=== PATIENT | male | born 1950 | race Two or more races ===

== ENCOUNTER 2024-09-26 07:57 | Emergency (ER) | payer OTHER, SELFPAY ==
[2024-09-26 07:58] VITALS: BMI 30.4
[2024-09-26 08:09] VITALS: BP 172/96; PULSE 73; RESP 20; TEMP 36.8; O2SAT 96; BMI 30.7
--- NOTE | 2024-09-26 08:18 | XR_ITS ---
Examination: CT abdomen and pelvis without contrast. Coronal 3-D reconstructions. Sagittal 2-D reconstructions. Date and time of exam:September 26, 2024 0830 hrs. Indications: Painful urination and constipation beginning 2 days ago CTDI: vol (mGy): 8.43 DLP: (mGycm): 508 Technique: Axial images of the abdomen have been obtained, 3 mm slice thickness Intravenous contrast material has not been administered. Low dose protocols were performed. One or more of the following dose reduction techniques were used; automated exposure control, adjustment of the mA and/or KV according to patient size, use of iterative reconstruction technique. Findings: Multiple low-density liver lesions, consider cystitis versus hemangiomas, the largest left lobe liver 3.1 cm No gallstones Spleen not enlarged No pancreatic or adrenal mass Prominent perinephric stranding Mild to moderate bilateral hydronephrosis hydroureters with pronounced pericystic inflammatory change, the appearance most consistent with bilateral vesicoureteral reflux, urinary tract infections and severe cystitis No obstructing ureteral calculi Aorta normal size No bowel obstruction Normal appendix No obstruction or diverticulitis Significant prostatomegaly AP dimension 5.8 cm Moderate lumbar spondylosis Moderate narrowing hip joints Mild left hydrocele, small bilateral fat-containing inguinal hernias Impression: Recommend hepatic sonography to confirm hepatic cysts versus hemangiomas Mild to moderate bilateral hydronephrosis hydroureters, perinephric stranding, pronounced pericystic inflammatory change, the appearance most consistent with bilateral vesicoureteral reflux urinary tract infections and severe cystitis Normal appendix Significant prostatomegaly
--- NOTE | 2024-09-26 08:19 | PD.EDRME ---
Rapid Medical Screening Exam RME Arrival date/time: 09/26/24 07:57 74-year-old male presents the emergency department complains of difficulty urinating and having stools ongoing for the last 2 days Chief Complaint: Urogenital-Male Time Seen by Provider: 09/26/24 08:01 Vital signs: Vital Signs Temperature 98.2 F 09/26/24 08:09 Pulse Rate 73 09/26/24 08:09 Respiratory Rate 20 09/26/24 08:09 Blood Pressure 172/96 H 09/26/24 08:09 Pulse Oximetry (%) 96 09/26/24 08:09 Oxygen Delivery Method Room Air 09/26/24 08:09
[2024-09-26 09:08] LABS: Basophils % (Auto) 0 % (0-2.5); Eosinophils # (Auto) 0.1 Thou/mm3 (0.0-0.5); Eosinophils % (Auto) 1 % (0-10); Hematocrit 46.2 % (41.0-53.0); Hemoglobin 16.2 g/dL (13.5-16.0); Immature Granulocytes % (Auto) 0 % (0-0); Immature Granulocytes Auto 0.03 Thou/mm3 (0.00-0.00); Lymphocytes # (Auto) 1.3 Thou/mm3 (1.0-4.8); Lymphocytes % (Auto) 14 % (10-50); Mean Corpuscular HGB Conc 35.1 g/dl (31.0-37.0); Mean Corpuscular Hemoglobin 30.7 pg (25.0-35.0); Mean Corpuscular Volume 88 fL (80-100); Monocytes # (Auto) 0.9 Thou/mm3 (0.0-0.8); Monocytes % (Auto) 9 % (0-12); Neutrophils # (Auto) 7.1 Thou/mm3 (1.8-7.7); Neutrophils % (Auto) 76 % (37-80); Nucleated Red Blood Cell % 0 /100 WBC (0); Platelet Count 285 Thou/mm3 (140-440); RDW Standard Deviation 43.8 fL (35.1-43.9); Red Blood Count 5.27 Miln/mm3 (4.50-5.90); White Blood Count 9.4 Thou/mm3 (3.8-10.6)
[2024-09-26 09:20] LABS: Alanine Aminotransferase 15 U/L (10-49); Albumin, Serum 4.8 gm/dL (3.4-4.8); Albumin/Globulin Ratio 1.9 (1.2-2.2); Alkaline Phosphatase 90 U/L (46-116); Anion Gap 8 (7-16); BUN/Creatinine Ratio 14 Ratio (12-20); Bilirubin,Total 1.5 mg/dL (0.3-1.2); Blood Urea Nitrogen 15 mg/dL (9-23); Chloride 104 mMol/L (98-107); Creatinine (Component) 1.1 mg/dL (0.6-1.3); Estimated Creatinine Clearance 55.1 mL/min (>60); Globulin 2.5 gm/dL (2.3-3.5); Glucose 113 mg/dL (74-106); Lipase 27 U/L (12-53); Osmolality,Calculated 281 (275-295); Potassium 4.2 mMol/L (3.4-5.1); Sodium 140 mMol/L (136-145); Total Protein 7.3 gm/dL (5.7-8.2); eGFR > 60 See Note
[2024-09-26 09:23] LABS: Aspartate Amino Transferase 16 U/L (0-34)
[2024-09-26 11:32] LABS: Collection Type, Urine Clean Catch; Squamous Epithelial Cell,Urine 0 /hpf (0-5)
[2024-09-26 11:34] LABS: Bilirubin,Urine Negative (Negative); Blood,Urine Negative (Negative); Clarity,Urine Clear (Clear/Hazy); Color,Urine Lt-Yellow (Lt Yel-Yel); Glucose, Urine Negative (Negative); Ketones,Urine Negative (Negative); Leukocyte Esterase,Urine Positive (Negative); Nitrite,Urine Negative (Negative); Protein,Urine Negative (Neg - Trace); RBC,Urine 4 /hpf (0-3); Specific Gravity,Urine 1.015 (1.001-1.035); Urobilinogen,Urine Negative mg/dL (0.0-1.0); WBC,Urine 77 /hpf (0-5)
[2024-09-26 11:48] LABS: Culture Indicated,Urine Yes
--- NOTE | 2024-09-26 12:38 | EDNOTE_ITS ---
<Statement entered by Cece Beasley MD - 10/05/24 16:24> As co-signing physician, I was present and available for consult prn. I concur with the plan and care as documented by the midlevel provider. ED General RME/HPI General Chief complaint: Urogenital-Male Stated complaint: DIFF. URINATING/CONSTIPATION FOR 2 DAYS Time Seen by Provider: 09/26/24 08:01 Arrival date/time: 09/26/24 07:57 CC: Urinary retention painful urination and dribbling HPI ongoing for the past 2 days. The patient is visiting from [place] patient states that in February he had a similar episode and had a Viramontes placed that has since been removed. Patient denies fever chills chest pain shortness of breath or difficulty breathing. RME / HPI RME / HPI narrative: 09/26/24 07:57 74-year-old male presents the emergency department complains of difficulty urinating and having stools ongoing for the last 2 days Related Data Previous Rx's ?Medication ?Instructions ?Recorded ciprofloxacin HCl 500 mg tablet 500 mg PO BID #14 tabs 09/26/24 (Cipro) tamsulosin 0.4 mg capsule (Flomax) 0.4 mg PO QDAY #30 caps 09/26/24 Allergies Allergy/AdvReac Type Severity Reaction Status Date / Time No Known Allergies Allergy Verified 09/26/24 08:00 Review of Systems Review of Systems Narrative Review of Systems: GEN: No fever, no chills, no weight loss EYES: No discharge, no visual changes, no pain HEENT: No ear pain, no congestion, no sore throat PULM: No shortness of breath, no cough, no congestion CV: No chest pain, no dyspnea on exertion, no palpitations GI: No nausea, no vomiting, no diarrhea, no pain, no constipation : No frequency, no urgency, + dysuria MUSC/SKEL: No joint pain, no back pain SKIN: No rash PSYCH: No hallucinations, no depression HEME/LYMPH: No easy bleeding or bruising tendencies NEURO: No weakness, no headache Past Medical History Social History SMOKING STATUS: Never smoker ED Exam Narrative Physical exam: [General: Not in any acute distress Head normocephalic HEENT: Within acceptable limits Neck is supple nontender Chest equal chest rise nontender to palpation Respiratory: Clear to auscultation no wheezes crackles or rubs CV: Rate rhythm is regular no murmurs rubs or clicks Abdomen is soft nontender no masses positive bowel sounds all 4 quadrants Back: No CVA tenderness no spinous process tenderness from cervical spine thoracic and lumbar spine Skin: Intact no petechiae rash induration ulceration or crepitus Extremities: Moving all extremity against resistance cap refill less than 2 seconds neurosensory intact Neuro: Awake alert oriented x3 Glascow coma 15 no focal deficits] Note at the time of the exam the Viramontes catheter had already been placed the patient states he had significant relief and there is approximately 1100 mL of clear yellow urine in the Viramontes drainage bag. Course Quality Measures none Orders Category Date Time Status Viramontes [Urinary Catheter] NOW Care 09/26/24 08:36 Completed Viramontes to Leg Bag NOW Care 09/26/24 08:[address] abdomen pelvis wo con Stat Exams 09/26/24 08:18 Completed CBC Stat Lab 09/26/24 08:27 Completed Comprehensive Metabolic Panel Stat Lab 09/26/24 08:27 Completed Lipase Stat Lab 09/26/24 08:27 Completed UA, C/S IF [Urinalysis, C/S if Indicated] Stat Lab 09/26/24 11:11 Completed Urine Culture Stat Lab 09/26/24 11:11 Completed cefTRIAXone [Rocephin] 1,000 mg Med 09/26/24 13:20 Discontinued Lidocaine 1% 20 ml [Xylocaine 1% 20 ML] 2.1 ml IM X1 cefTRIAXone/D5w 1gm IV premix [Rocephin/D5w 1gm IV Med 09/26/24 12:27 Discontinued premix] 50 ml IV X1 Vital Signs Vital signs: Vital Signs Temperature 98.2 F 09/26/24 08:09 Pulse Rate 73 09/26/24 08:09 Respiratory Rate 20 09/26/24 08:09 Blood Pressure 172/96 H 09/26/24 08:09 Pulse Oximetry (%) 96 09/26/24 08:09 Oxygen Delivery Method Room Air 09/26/24 08:09 [facility] Patient data External records reviewed:: [facility] previous records Clinical information provided by:: patient Social determinants that could affect healthcare access:: none Patient has the following chronic illnesses:: Unknown How is presenting disease/condition affected by chronic disease/condition?: u neffected by Evaluation data The following diagnostics were reviewed and interpreted by me:: lab results and radiology exam(s) Lab and/or radiology exams considered but not ordered:: CBC shows no acute leukocytosis anemia thrombocytopenia CMP shows no acute electrolyte imbalances other than elevated blood glucose level no renal impairment mild elevated T. bili no transaminitis Urine is positive for UTI. Interpretation Summary: Urinary retention with UTI at this time Viramontes was placed, patient will be discharged home with a Viramontes and a leg bag to follow-up with primary care provider. Medications Medications considered but not ordered:: None Medication administrations:: Medication Administration History Discontinued Medications Ceftriaxone Sodium 1,000 mg/ (Lidocaine HCl 2.1 ml) 0 mg IM X1 ONE Stop: 09/26/24 13:21 Last Admin: 09/26/24 13:31 Dose: 1,000 mg Documented By: MAIA Ceftriaxone Sodium/Dextrose (Rocephin/D5w 1gm Iv Premix) 50 mls @ 100 mls/hr IV X1 ONE Stop: 09/26/24 12:56 Last Admin: 09/26/24 13:31 Dose: Not Given Documented By: MAIA Non-Admin Reason: Cancelled by Provider None Consultations Consultation(s) initiated? (list below): No Diagnosis Differential Diagnosis ED Complaint MDM: Urinary retention UTI dysuria Most likely diagnosis given after review of the tests above:: UTI urinary retention dysuria Admission Indicated Admission indicated?: not indicated Explain why admission is indicated or not indicated:: Stable for outpatient follow-up Admission Request Was there a request for admission?: No Disposition Plan Disposition Plan: Discharge Discharge Attestation Discharge Attestation: The patient and all family members were given an opportunity to ask questions and understood the discharge instructions. Discharge instructions specifically effects, indications for sooner follow up or return to the emergency department, and the expected course of current diagnosis. Patient condition: Stable Medical Decision Making Differential Diagnosis Differential Diagnosis: Urinary retention UTI dysuria Lab Data 09/26/24 08:27 09/26/24 08:27 Labs: Lab Results 09/26/24 09/26/24 Range/Units 08:27 11:11 WBC 9.4 (3.8-10.6) Thou/mm3 RBC 5.27 (4.50-5.90) Miln/mm3 Hgb 16.2 H (13.5-16.0) g/dL Hct 46.2 (41.0-53.0) % MCV 88 (80-100) fL MCH 30.7 (25.0-35.0) pg MCHC 35.1 (31.0-37.0) g/dl RDW Std Deviation 43.8 (35.1-43.9) fL Plt Count 285 (140-440) Thou/mm3 Neut % (Auto) 76 (37-80) % Lymph % (Auto) 14 (10-50) % [place] % (Auto) 9 (0-12) % Eos % (Auto) 1 (0-10) % Baso % (Auto) 0 (0-2.5) % Neut # (Auto) 7.1 (1.8-7.7) Thou/mm3 Lymph # (Auto) 1.3 (1.0-4.8) Thou/mm3 [place] # (Auto) 0.9 H (0.0-0.8) Thou/mm3 Eos # (Auto) 0.1 (0.0-0.5) Thou/mm3 Baso # (Auto) 0.0 (0.0-0.2) Thou/mm3 Immature Gran # (Auto) 0.03 H (0.00-0.00) Thou/mm3 Absolute Nucleated RBC 0.00 (0.00-0.00) Thou/mm3 Immature Gran % 0 (0-0) % Nucleated RBC % 0 (0) /100 WBC Sodium 140 (136-145) mMol/L Potassium 4.2 (3.4-5.1) mMol/L Chloride 104 (98-107) mMol/L Carbon Dioxide 28.0 (20.0-31.0) mMol/L Anion Gap 8 (7-16) BUN 15 (9-23) mg/dL Creatinine 1.1 (0.6-1.3) mg/dL Estim Creat Clear Calc 55.1 L (>60) mL/min eGFR > 60 (60 - ) See Note BUN/Creatinine Ratio 14 (12-20) Ratio Glucose 113 H (74-106) mg/dL Calculated Osmolality 281 (275-295) Calcium 10.0 (8.3-10.6) mg/dL Corrected Calcium 10.0 (8.5-10.1) mg/dL Total Bilirubin 1.5 H (0.3-1.2) mg/dL AST 16 (0-34) U/L ALT 15 (10-49) U/L Alkaline Phosphatase 90 (46-116) U/L Total Protein 7.3 (5.7-8.2) gm/dL Albumin 4.8 (3.4-4.8) gm/dL Globulin 2.5 (2.3-3.5) gm/dL Albumin/Globulin Ratio 1.9 (1.2-2.2) Lipase 27 (12-53) U/L Ur Collection Type Clean Catch Urine Color Lt-Yellow (Lt Yel-Yel) Urine Clarity Clear (Clear/Hazy) Urine pH 6.0 (5.0-7.0) Ur Specific University 1.015 (1.001-1.035) Urine Protein Negative (Neg - Trace) Urine Glucose (UA) Negative (Negative) Urine Ketones Negative (Negative) Urine Blood Negative (Negative) Urine Nitrite Negative (Negative) Urine Bilirubin Negative (Negative) Urine Urobilinogen (Auto) Negative (0.0-1.0) mg/dL Ur Leukocyte Esterase Positive (Negative) Urine RBC 4 H (0-3) /hpf Urine WBC 77 H (0-5) /hpf Ur Squamous Epith Cells 0 (0-5) /hpf Urine Bacteria None (None) Ur Culture Indicated? Yes Discharge Plan Plan Patient Disposition: HOME (Self Care) Patient condition on transfer: Stable Prescriptions/Referrals Prescriptions/Med Rec: New ciprofloxacin HCl [Cipro] 500 mg tablet 500 mg PO BID Qty: 14 0RF tamsulosin [Flomax] 0.4 mg capsule 0.4 mg PO QDAY Qty: 30 0RF Referrals: Danielle Lantigua MD [Physician] - In 1 week Epi Hernandez MD [Physician] - In 1 week No Primary/Family,Physician [Primary Care Provider] - In 1 week Problem List Clinical Impression: Urinary tract infection, Acute retention of urine Patient/Caregiver Discharge Instructions Other Activity Instructions:: Take the medications as prescribed follow-up with your primary care doctor get a referral to urologist. If there is worsening of symptoms or fever return immediately to the closest emergency room for reevaluation. Education Materials: Urinary Tract Infections in Men, ED Bladder Infection, Male (Adult) Print Language: Scottish Stand Alone Forms: Aleyda Award Info., Work/School Release, Patient Portal Info Letter PA/CAD SPECIALIST Supervising Physician PA/CAD SPECIALIST Supervising Physician: Conor Jiang ENP
[2024-09-26] MEDS: cefTRIAXone 1,000 MG, LIDOCAINE 1% 20 ML 2.1 ML IM (13:31)
== END 2024-09-26 13:33 | disposition home or self-care (01) ==
PROVIDERS: Nurse Practitioner Primary Care; Emergency Provider Emergency Medicine
DX: N39.0 Urinary tract infection, site not specified (principal)
CPT/HCPCS: 51702; 36415; 74176; 80053; 81001; 83690; 85025; 87077; 87086; 87186; 96372; 99284; J0696; J3490